=== PATIENT | female | born 1935 | race Caucasian/White ===

== ENCOUNTER 2019-07-30 09:35 | Inpatient (IN) | payer OTHER ==
[~2019-07-30] VITALS: Ht 157.5 cm; Wt 71.2 kg
[2019-07-30] MEDS ORDERED: ATACAND HCT 161 EACH (09:57)
[2019-07-30] MEDS ORDERED: ATACAND HCT 321 EAC1 (09:57)
[2019-07-30] MEDS ORDERED: ECOTRIN81 MG (09:57)
[2019-07-30] MEDS ORDERED: LIPITOR20 MG (09:57)
[2019-07-30] MEDS ORDERED: SINGULAIR10 MG (09:58)
== END 2019-08-01 16:36 | disposition home or self-care (01) | DRG 641 ==
LOC: ER 09:35 → SURH 14:15 → EDBD 14:15 → SURH 08-01 16:36
PROVIDERS: ADMIT Internal Medicine
PROC: 4A033R1 Measurement of Arterial Saturation, Peripheral, Percutaneous Approach (ICD-10-PCS; principal; 2019-07-30)
PROC: 3E0F7GC Introduction of Other Therapeutic Substance into Respiratory Tract, Via Natural or Artificial Opening (ICD-10-PCS; 2019-07-30)
DX: E87.1 Hypo-osmolality and hyponatremia (principal); E86.0 Dehydration; I10 Essential (primary) hypertension; E78.49 Other hyperlipidemia